=== PATIENT | male | born 1965 | race Caucasian/White ===

== ENCOUNTER 2021-06-12 09:28 | Emergency (ER) | payer SELFPAY ==
--- NOTE | 2021-06-12 09:29 | ED.SKABFB ---
HPI - Skin/Abscess/Foreign Bdy General Chief complaint: Skin/Abscess/Foreign Body Stated complaint: Rash Time Seen by Provider: 06/12/21 09:37 Source: patient, family () and RN notes reviewed Mode of arrival: ambulatory Limitations: no limitations History of Present Illness HPI narrative: 56-year-old male presents to the [facility] with complaints of a rash. Patient states the rash started Saturday, 3 days ago to bilateral forearms and Saturday to the left upper thigh. Has been using calamine and Benadryl lotion with minimal to no relief. Patient reports that on Saturday or Saturday he was clearing brush and think he got in contact with either poison flaco or poison oak. Denies any chest pain or shortness of breath. No abdominal pain. No swelling of the lips or tongue. MD complaint: rash Related Data Home Medications Medication Instructions Recorded Confirmed omeprazole [Prilosec] 20 mg PO DAILY 06/12/21 06/12/21 Allergies Allergy/AdvReac Type Severity Reaction Status Date / Time 1 SELDANE 2.STACIE PT HAD Allergy Unknown Hives Uncoded 06/12/21 09:47 HIVES TOOK BOTH AT SOMETIME NKFA Allergy Unknown Other Uncoded 06/12/21 09:47 Review of Systems Review of Systems: All systems reviewed & are unremarkable except as noted in HPI and below Constitutional: Constitutional: Reports no additional constitutional complaints, Denies chills, Denies fever(s), Denies headache(s) and Denies weakness Eyes: Eyes: Reports no additional eye complaints and Denies change in vision ENT: Reports system reviewed and no additional complaints, except as documented, Denies dysphagia, Denies dizziness, Denies headache(s), Denies nasal congestion and Denies sore throat Cardiovascular: Cardiovascular: Reports no additional cardiovascular complaints, Denies chest pain, Denies syncope and Denies dyspnea Respiratory: Respiratory: Reports no additional respiratory complaints, Denies chest congestion, Denies cough, Denies dyspnea and Denies wheezing Gastrointestinal: Gastrointestinal: Denies dysphagia Musculoskeletal: Musculoskeletal: Reports no additional musculoskeletal complaints and Denies numbness Integumentary/Breasts: Skin/Breast: Reports as per HPI and Reports rash Comments: Bilateral forearms, left upper thigh Neurologic: Reports system reviewed and no additional complaints, except as documented, Denies dizziness, Denies syncope, Denies headache(s), Denies focal weakness, Denies numbness and Denies weakness Psychiatric: Psychiatric: Reports no additional psychiatric complaints Allergic/Immunologic: Allergic/Immunologic: Reports no additional allergic/immunologic complaints PMF Past Medical History Medical History (Updated 06/12/21 @ 09:53 by Livia Fuller APRN) H/O gastroesophageal reflux (GERD) Surgical History Surgical History (Updated 06/12/21 @ 09:53 by Livia Fuller APRN) No history of previous surgery Social History Social History (Updated 06/12/21 @ 09:53 by Livia Fuller APRN) Living arrangements: with family Gender identity (if verbalized by the patient): Male Comments At the time of my signature, I reviewed and agree with the nursing past medical, surgical, social, and family history. There is no relevant family history pertinent to the patient complaint. Exam Const: General: healthy appearing, no acute distress and alert Nutritional Appearance: well nourished Orientation/consciousness: patient oriented x3 Limitations: no limitations HENMT: Head: normal to inspection Ears: external ears normal Eyes: Pupils: Equal, round and reactive pupils present Neck: Neck: normal visual inspection, no lymphadenopathy and no meningeal signs Chest: Chest palpation & inspection: normal inspection of the chest Resp: Effort & Inspection: normal respiratory effort Auscultation: clear to auscultation bilaterally Cardio: Rate: regular rate Rhythm: regular rhythm Skin: General skin exam: normal color, n
[2021-06-12 09:38] VITALS: BP 124/69; PULSE 85; RESP 16; TEMP 35.8; O2SAT 99
== END 2021-06-12 10:05 | disposition home or self-care (01) ==
PROVIDERS: Emergency Provider Nurse Practitioner; PCP Internal Medicine
DX: L25.5 Unspecified contact dermatitis due to plants, except food (principal); K21.9 Gastro-esophageal reflux disease without esophagitis
CPT/HCPCS: 99213; G0463